=== PATIENT | female | born 1975 | race Hispanic/Latino ===

== ENCOUNTER 2025-06-01 09:54 | Emergency (ER) | payer OTHER, SELFPAY ==
[2025-06-01] VITALS (14 sets, daily range): BP systolic 152–193; BP diastolic 55–105; PULSE 63–76; RESP 16–24; TEMP 36.9; O2SAT 98–100; BMI 51.3
--- NOTE | 2025-06-01 10:05 | EKG_ITS ---
[address] [id number] [address] [address] Test Date: 2025-06-01 Pat Name: Juani Arciniega Department: Room: Gender: Female Manager Logistic: VAMSHI : 1975 Requested By: Order Number: [id number] Reading MD: Grant Mendoza Measurements Intervals [place] Rate: 74 P: 63 ME: 134 QRS: 14 QRSD: 90 T: 47 QT: 378 QTc: 419 Interpretive Statements Normal sinus rhythm Electronically Signed On 06-03-2025 12:58:34 PST by Grant Mendoza
--- NOTE | 2025-06-01 10:05 | DI.RAD.S_ITS ---
PROCEDURE: XR CHEST 1V INDICATIONS: Chest Pain TECHNIQUE: One view of the chest was acquired. COMPARISON: None. FINDINGS: Surgical changes and devices: None. Lungs and pleura: Lungs are clear. No pleural effusions or pneumothorax. Mediastinum: Mediastinal contours appear normal. Heart size is normal. Bones and chest wall: No suspicious bony lesions. Overlying soft tissues appear unremarkable. IMPRESSION: No acute cardiopulmonary abnormality is seen. Approved by: Ramiro Ulrich M.D. on 06/01/2025 at 10:47
[2025-06-01 10:18] LABS: Add Manual Diff / Slide Review NO; Hematocrit 39.6 % (36-46); Hemoglobin 13.2 g/dL (12.0-16.0); Lymphocytes Absolute Auto 2300 /uL (1100-4500); Mean Corpuscular HGB Conc 33.3 % (30-36); Mean Corpuscular Hemoglobin 28.3 PG (26-34); Mean Corpuscular Volume 84.9 fL (80-100); Platelet Count 290 X10^3/uL (150-400)
[2025-06-01 10:26] LABS: INR 0.9 (0.9-1.3); Prothrombin Time 10.6 SECONDS (9.4-12.5)
[2025-06-01 10:29] LABS: PTT Partial Thromboplastin Tim 29 SECONDS (25.1-36.5)
[2025-06-01 10:30] LABS: Alanine Aminotransferase 32 IU/L (<35); Albumin 4.3 g/dL (3.5-5.0); Albumin Globulin Ratio 1.1 (1.0-2.8); Alkaline Phosphatase 114 U/L (38-126); Blood Urea Nitrogen 17 mg/dL (7-17); Calcium 8.9 mg/dL (8.4-10.2); Carbon Dioxide 28 mmol/L (22-32); Chloride 105 mmol/L (98-107); Creatine Kinase 134 U/L (30-135); Estimated Glomerular Filt Rate > 60 mL/min (>60); Globulin 4.0 g/dL (1.7-4.1); Glucose 97 mg/dL (70-99); HEMOLYSIS < 15 (0-50); Lipase 90 U/L (23-300); Magnesium 1.8 mg/dL (1.6-2.3); Potassium 3.8 mmol/L (3.4-5.1); Sodium 138 mmol/L (137-145); Total Protein 8.3 g/dL (6.3-8.2)
[2025-06-01 10:42] LABS: NT-proBNP (BNP-Adult 18+) 280 pg/mL (<125); Troponin I < 0.012 ng/mL (0.01-0.034)
--- NOTE | 2025-06-01 11:42 | DI.CT.S_ITS ---
PROCEDURE: CT ANGIO CHEST ABDOMEN PELVIS INDICATIONS: C/f dissection TECHNIQUE: Precontrast 5 mm thick sections acquired from the lung apices to the iliac crests. After the administration of intravenous contrast, 2.5 mm thick sections again acquired from the lung apices to the iliac crests. Maximum intensity projection (MIP) oblique sagittal and coronal reformats were then acquired. For radiation dose reduction, the following was used: automated exposure control. COMPARISON: None. FINDINGS: Image quality: Diagnostic. AORTA: No aortic aneurysm. No acute aortic syndrome. Pulmonary tree: Normal caliber. No acute pulmonary emboli. CHEST: Lower Neck: No enlarged lymph nodes. Thyroid: No thyroid nodules which require sonographic evaluation. Axillae: No enlarged lymph nodes. Chest Wall: Unremarkable. Lungs and Pleura: No pneumothorax or pleural effusions. Minimal atelectasis, inferior lingula. Otherwise unremarkable. No suspicious pulmonary nodules. Heart: Heart size is normal. No pericardial effusion. Thoracic Vessels: Pulmonary arteries demonstrate normal size. Mediastinum and Sandra: No enlarged lymph nodes. Esophagus: No wall thickening. No hiatal hernia. ABDOMEN: Liver: No solid mass. Gallbladder: No radiopaque gallstones or wall thickening. Biliary ducts: No biliary dilation. Pancreas: No ductal dilation. Spleen: Size is within normal limits. Adrenal Glands: No adrenal nodules. Kidneys and Ureters: No hydronephrosis. No solid mass. No complex renal cystic lesion which requires follow up. Stomach and Bowel: Normal colonic caliber, without significant wall thickening. Peritoneum: No abnormal intraperitoneal fluid. No free air. Ventral Wall: No hernia. Abdominal Nodes: No retroperitoneal or mesenteric adenopathy by size criteria. Vessels: Inferior vena cava is normal in size. PELVIS: Pelvic Organs: Unremarkable. Bladder: Unremarkable. Pelvic Nodes: No enlarged lymph nodes. Miscellaneous: No inguinal hernias are seen. Bones: Unremarkable. IMPRESSION: 1. Unremarkable aorta. No aortic syndrome. 2. No acute pulmonary emboli. 3. No acute process in the chest, abdomen, and pelvis. Dictated by: Hal Hagan M.D. on 06/01/2025 at 12:23 Approved by: Hla Hagan M.D. on 06/01/2025 at 12:31
[2025-06-01 14:06] LABS: Troponin I < 0.012 ng/mL (0.01-0.034)
--- NOTE | 2025-06-01 14:21 | ED.CHESTPAIN ---
HPI - Chest Pain General Chief Complaint: Chest Pain Stated Complaint: mild Chest pains, since 6 AM this morning Time Seen by Provider: 06/01/25 10:02 Source: patient Mode of arrival: Family Vehicle Limitations: no limitations History of Present Illness HPI narrative: 50-year-old morbidly obese female who does not see physicians but does have a significant family history of diabetes and kidney disease in her family mother of an [place] in her early 50s presents with acute onset chest pain radiating to the back on the right side of her chest starting this morning at approximately 7:30 a.m.. Patient states that she has had pain like this before but this is the 1st time that it has been this persistent. denies fevers, chills, nausea, vomiting, diarrhea, abdominal pain, chest pain, shortness of breath, dizziness, headache, and urinary symptoms. Related Data Home Medications ?Medication ?Instructions ?Recorded ?Confirmed esomeprazole magnesium 10 mg 20 mg PO DAILY 08/28/18 08/28/18 granules delayed release for susp (Nexium Packet) ranitidine HCl 150 mg tablet 150 mg PO DAILY 08/28/18 08/28/18 (Zantac) Previous Rx's ?Medication ?Instructions ?Recorded albuterol sulfate 90 mcg/actuation 2 puff inhalation Q4-6H PRN 08/28/18 aerosol inhaler shortness of breath or wheezing #8.5 grams fluticasone 232 mcg-salmeterol 14 1 puff inhalation BID #1 ea 08/28/18 mcg/actuation breath activated powdr montelukast 10 mg tablet 10 mg PO QPM #90 tabs 08/28/18 Allergies Allergy/AdvReac Type Severity Reaction Status Date / Time acetaminophen (From Percocet) Allergy Verified 06/01/25 10:05 oxycodone (From Percocet) Allergy Verified 06/01/25 10:05 Aspirin Allergy Unknown Uncoded 06/01/25 10:05 Codeine Allergy Unknown Uncoded 06/01/25 10:05 Penicillin Allergy Unknown Uncoded 06/01/25 10:05 Review of Systems Review of Systems ROS Unobtainable: All systems reviewed & are unremarkable except as noted in HPI and below Patient History Smoking Status: Former smoker tobacco type: cigarettes Exam Narrative Exam Narrative: Morbidly obese Initial Vital Signs Initial Vital Signs: Vital Signs Pulse Rate 73 06/01/25 10:05 Respiratory Rate 18 06/01/25 10:05 Pulse Oximetry 98 06/01/25 10:05 Const General: cooperative, healthy appearing, comfortable, well developed and well hydrated Nutritional Appearance: average body habitus [facility] Head: normal to inspection Ears: external ears normal Nose: external nose normal and nares normal Face and sinus: sinuses nontender, face symmetric, ecchymosis not on the right, not on the left and not bilaterally, erythema not on the right, not on the left and not bilaterally and edema not on the right, not on the left and not bilaterally Mouth: lip normal Eyes General: Yes appearance normal, both eyes and all related structures Eyelids: eyelids normal Sclera: sclerae normal Pupils: PERRL Neck Neck: normal visual inspection Resp Effort & Inspection: normal respiratory effort and able to speak in complete sentences Cardio Rate: regular rate Rhythm: regular rhythm Pulses: radial pulses present GI Inspection: normal to inspection and non-distended General: bimanual renal exam normal bilaterally Back/Spine/Pelvis Back: normal to inspection Skin General: no rashes or lesions noted Neuro General: patient alert, patient awake, patient oriented x3, gait normal, moves all extremities, normal light touch, pain and propioception, no focal motor deficits and CN's II-XI intact bilaterally Cognition: normal cognition Speech: speech normal Gait: normal gait Motor: muscle tone normal throughout Sensory Exam: no sensory deficits noted Extrem General: normal to inspection Psych Appearance: grossly normal Mental Status: mental status grossly normal Speech and Movement: speech and movement normal Mood: congruent mood Attitude: cooperative Thought Process: normal Thought Content: normal Judgment: judgment good Course Orders Ordered: ED Orders 06/01/25 10:05 XR chest 1V Stat EKG-12 Lead Stat 06/01/25 10:09 Complete Blood Count AUTO DIFF Stat Comprehensive Metabolic Panel Stat Lipase Stat Magnesium Stat NT-proBNP (BNP-Adult 18+) Stat PTT Partial Thromboplastin Richy Stat Prothrombin Time INR Stat Troponin & CK Cardiac Panel Stat 06/01/25 11:42 CT angio chest abdomen pelvis Stat 06/01/25 12:55 Troponin I Stat Discontinued Medications Aspirin (Aspirin 81 Mg Chew Tab) 324 mg PO NOW ONE Stop: 06/01/25 10:06 Last Admin: 06/01/25 12:36 Dose: Not Given Documented By: DEON Labetalol HCl (Labetalol 20 Mg/4 Ml Syringe) 10 mg IV NOW ONE Stop: 06/01/25 11:44 Last Admin: 06/01/25 14:17 Dose: Not Given Documented By: DEON Vital Signs Vital signs: Vital Signs - 8 hr 06/01/25 10:05 06/01/25 10:06 06/01/25 10:06 Temperature 98.5 F Pulse Rate 73 69 70 Respiratory Rate 18 16 16 Blood Pressure 189/96 H Pulse Oximetry 98 99 100 Oxygen Delivery Method Room Air 06/01/25 10:06 06/01/25 10:30 06/01/25 11:00 Temperature Pulse Rate 72 63 Respiratory Rate 21 Blood Pressure 189/96 H Pulse Oximetry 100 99 Oxygen Delivery Method 06/01/25 11:00 06/01/25 11:30 06/01/25 11:31 Temperature Pulse Rate 69 75 Respiratory Rate 23 Blood Pressure 193/98 H Pulse Oximetry 99 99 Oxygen Delivery Method 06/01/25 11:31 06/01/25 12:33 06/01/25 12:34 Temperature Pulse Rate 70 70 Respiratory Rate 18 18 Blood Pressure 170/96 H Pulse Oximetry 100 100 Oxygen Delivery Method 06/01/25 12:34 06/01/25 12:58 06/01/25 12:58 Temperature Pulse Rate 67 Respiratory Rate 24 Blood Pressure 162/92 H 164/96 H Pulse Oximetry 100 Oxygen Delivery Method 06/01/25 13:00 06/01/25 13:00 06/01/25 13:30 Temperature Pulse Rate 68 Respiratory Rate 24 Blood Pressure 170/99 H 173/105 H Pulse Oximetry 100 Oxygen Delivery Method 06/01/25 13:30 06/01/25 14:00 06/01/25 14:16 Temperature Pulse Rate 66 64 Respiratory Rate 19 16 Blood Pressure 155/85 H Pulse Oximetry 100 100 Oxygen Delivery Method 06/01/25 14:16 Temperature Pulse Rate 67 Respiratory Rate 23 Blood Pressure Pulse Oximetry 100 Oxygen Delivery Method MDM - Chest Pain Lab Data 06/01/25 10:09 06/01/25 10:09 Labs: Lab Results 06/01/25 06/01/25 Range/Units 10:09 12:55 WBC 7.4 (4.5-11.0) X10^3/uL RBC 4.67 (4.0-5.2) X10^6/uL Hgb 13.2 (12.0-16.0) g/dL Hct 39.6 (36-46) % MCV 84.9 (80-100) fL MCH 28.3 (26-34) PG MCHC 33.3 (30-36) % RDW 14.4 (11.6-14.8) % Plt Count 290 (150-400) X10^3/uL Neut % (Auto) 57.7 (50-75) % Lymph % (Auto) 31.2 (25-40) % [place] % (Auto) 6.0 (3-14) % Eos % (Auto) 4.4 H (2-4) % Baso % (Auto) 0.7 (0-2) % Neut # (Auto) 4300 (8524-2970) /uL Lymph # (Auto) 2300 (9520-6455) /uL [place] # (Auto) 400 (0-900) /uL Eos # (Auto) 300 (0-450) /uL Baso # (Auto) 100 (0-100) /uL PT 10.6 (9.4-12.5) SECONDS INR 0.9 (0.9-1.3) APTT 29 (25.1-36.5) SECONDS Sodium 138 (137-145) mmol/L Potassium 3.8 (3.4-5.1) mmol/L Chloride 105 (98-107) mmol/L Carbon Dioxide 28 (22-32) mmol/L BUN 17 (7-17) mg/dL Creatinine 0.68 (0.52-1.04) mg/dL Estimated GFR > 60 (>60) mL/min BUN/Creatinine Ratio 25.0 H (6-22) Glucose 97 (70-99) mg/dL Calcium 8.9 (8.4-10.2) mg/dL Magnesium 1.8 (1.6-2.3) mg/dL Total Bilirubin 0.5 (0.2-1.3) mg/dL AST 35 (14-36) IU/L ALT 32 (<35) IU/L Alkaline Phosphatase 114 (38-126) U/L Total Creatine Kinase 134 (30-135) U/L Troponin I < 0.012 < 0.012 (0.01-0.034) ng/mL NT-Pro-B Natriuret Pep 280 H (<125) pg/mL Total Protein 8.3 H (6.3-8.2) g/dL Albumin 4.3 (3.5-5.0) g/dL Globulin 4.0 (1.7-4.1) g/dL Albumin/Globulin Ratio 1.1 (1.0-2.8) Lipase 90 (23-300) U/L MDM Narrative Medical decision making narrative: Pt presents w/ Chest Pain. Chest x-ray for consideration of pneumonia, pneumothorax, or congestive heart failure. EKG, troponin in consideration of arrhythmia, Acute Coronary Syndrome, Acute Myocardial Infarction. Check labs due to consideration of anemia, electrolyte abnormalities, including hypokalemia, hyperkalemia, hyponatremia, hypernatremia, hyperglycemia, hypoglycemia. CT chest indicated as I considered aortic dissection/pulmonary embolism. Re-eval Lab work, troponin negative x2, EKG reassuring, patient is stable for discharge. Discharge Plan Departure Patient Disposition: Home Clinical Impression: Acute chest pain Instructions: DI for Chest Pain Activity Restrictions/Additional Instructions: Please return to ED if you have worsening chest pain, shortness of breath, dizziness, nausea, passing out, or any other concern. Si el dolor de pecho sigue, pierde conocimiento, tiene problemas con respiraci?n o cualquier otra malika, por favor vuelve a urgencias. Please follow-up with the primary care doctor as soon as possible. Prescriptions: No Action ranitidine HCl [Zantac] 150 mg tablet 150 mg PO DAILY Nexium Packet [address] for susp in packet 20 mg PO DAILY montelukast 10 mg tablet 10 mg PO QPM Qty: 90 3RF albuterol sulfate 90 mcg/actuation HFA aerosol inhaler 2 puff INHALATION Q4-6H PRN (Reason: shortness of breath or wheezing) Qty: 8.5 3RF fluticasone propion-salmeterol 232-14 mcg/actuation aerosol powdr breath activated 1 puff INHALATION BID Qty: 1 3RF Stand Alone Forms: Patient Portal/API
== END 2025-06-01 15:05 | disposition home or self-care (01) ==
PROVIDERS: Emergency Provider Emergency Medicine
DX: R07.89 Other chest pain (principal); Z82.49 Family history of ischemic heart disease and other diseases of the circulatory system
CPT/HCPCS: 36415; 71045; 71275; 74174; 80053; 82550; 83690; 83735; 83880; 84484; 85025; 85610; 85730; 93005; 99283; 99284; Q9967